=== PATIENT | male | born 1960 | race African-American/Black ===

== ENCOUNTER 2017-07-20 20:38 | Observation (INO) | payer BC ==
[2017-07-20] MEDS ORDERED: NS 0.9% 1000 ML* 1,000 ML IV ONE (20:46)
[2017-07-20 21:08] LABS: ABS Basophils 0 10^3/ul (0-0.2); ABS Eosinophils 0.1 10^3/ul (0-0.6); ABS Lymphocytes 2.5 10^3/ul (1.0-4.8); ABS Monocytes 0.4 10^3/ul (0-0.8); ABS Neutrophils 2.1 10^3/ul (1.5-7.7); ABS Nucleated RBC 0 10^3/ul; Hematocrit 41 % (42-52); Hemoglobin 13.9 g/dl (14.0-18.0); Lymphocyte % 47.9 % (25-47); Mean Corpuscular HGB Conc 34 g/dl (31-36); Mean Corpuscular Hemoglobin 31 pg (27-31); Mean Corpuscular Volume 91 fL (80-94); Mean Platelet Volume 10.3 um3 (7.4-10.4); Nucleated Red Blood Cells % 0.1; Platelet Count 133 10^3/ul (150-450); Red Blood Count 4.46 10^6/ul (4.0-5.4); Red Cell Distribution Width 14 % (10.5-15); White Blood Count 5.2 10^3/ul (3.5-10.8)
[2017-07-20 21:25] LABS: EGFR Non-African American 61.7 (>60)
--- NOTE | 2017-07-20 21:32 | RAD ---
Indication: Chest pain. Single frontal view of the chest performed at 2044 hours was reviewed. No prior study is available for comparison. No mediastinal shift is noted. Heart is of normal size and configuration. Lung farnsworth appear clear. IMPRESSION: NO ACTIVE CARDIOPULMONARY DISEASE IS NOTED.
--- NOTE | 2017-07-20 22:28 | CONS ---
INTERVENTIONAL CARDIOLOGY CONSULT NOTE: DATE OF CONSULT: 07/20/17 REASON FOR CONSULT: Called on a STEMI alert by [facility] Emergency Room, Dr. Keita , to assess the patient with abnormal EKG and chest discomfort. HISTORY OF PRESENT ILLNESS: The patient is a pleasant 56-year-old gentleman with no prior known cardiac history. Specifically, he denies any history of myocardial infarction, congestive heart failure, or significant heart rhythm disturbance. He states he was in his usual state of health sitting at his computer this morning and had the onset of a mild discomfort in his chest that he had a difficult time qualifying. Ultimately, he said it felt like perhaps almost like a gas sensation. There was no radiation to the throat, jaw or the arms. He had no diaphoresis, nausea, vomiting, or profound shortness of breath. It initially lasted 5 minutes, but throughout the day it would come on and off. 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 He eventually continued to have symptoms and as such, called the emergency services and on arrival they performed an EKG and were concerned of ST segment elevation in the early precordial leads and they radio'ed and then called a STEMI alert. When I see the patient now, he is currently without any chest discomfort at all, in no acute distress. The patient is a very active gentleman and does a significant amount of aerobic activity. Just yesterday, he was on an elliptical for an hour without provoking any symptom. The patient denies any history of hypertension or hyperlipidemia. He has no family history of early heart disease. He has no known history of increased cholesterol, and he denies smoking. PAST MEDICAL HISTORY: No significant past medical problems that he readily admits to. In reviewing an old emergency room visit he had for left foot discomfort, knee and thigh discomfort, in the past medical history there was no mention of any other significant illnesses. PAST SURGICAL HISTORY: None. REVIEW OF SYSTEMS: Currently, he denies any light photophobia or blurred vision. He denies any sore throat or earaches. He denies any current chest pain or palpitations. He denies any shortness of breath, cough, or history of asthma. He denies any vomiting, diarrhea, or gastroesophageal reflux symptoms. He denies any dysuria or hematuria. He denies any significant arthralgia or muscle aches currently. He denies having any rashes or easy bruisability, any headache or weakness of one side of the body, any history of depression. He does admit to being anxious this morning and he believes that it started with him sitting in front of the computer, anxious about having to go to work to a meeting. He subsequently canceled the meeting. PHYSICAL EXAM: When I see him in the emergency room reveals a pleasant gentleman resting in no distress. Blood pressure 121/75, pulse of 56, respirations 17, O2 saturation 96% on room air. Neck is supple. No increased JVP. Carotid with good upstroke and volume without bruits. Conjunctivae are pink. Sclerae are clear. Lungs reveal no accessory muscle usage. There is good excursion. There is no active rales, rhonchi, or wheezes. Heart reveals no visible heaves. No palpable heaves or thrills. Normal S1, S2. No S3, S4, or gallop. No significant systolic or diastolic murmur. Abdomen is soft and nontender without organomegaly. Extremities are without clubbing or cyanosis. There is no pitting edema. Peripheral pulses are intact. Neuro: The patient is alert and oriented with normal mentation. Musculoskeletal: The patient moves all extremities appropriate. Psychological: The patient appears quite calm in nature. DIAGNOSTIC STUDIES/LAB DATA: Electrocardiogram done in the emergency room and similar to the ones of the emergency medical service revealed sinus bradycardia ; heart rate of 51; normal CA, QRS, and QT interval. There is a poor R wave in V1 and V2 with J-point elevation noted minimally in V1, more prominent in V2 of approximately 2 mm and 2 to 2.5 mm in V3, subtly in V4 and V5. No definitive reciprocal changes are noted, although biphasic T wave in lead 3 is seen. Bedside echocardiography performed with limited imaging reveals good wall motion to all regions of the left ventricle including the anterior wall. OVERALL ASSESSMENT: Currently, Mr. Wilson appears to be quite stable in nature. At this point in time, he has normal left ventricular systolic function and normal septal wall motion despite poor R waves in V1 and V2, and the ST segment elevations that appear to be mildly concave upward in V2 and V3 and V4 and V5. Without the reciprocal changes and with him totally stable, we will await the cardiac enzymes and if the first troponin is negative, I would clearly not pursue any emergent cardiac catheterization. I will leave it to the emergency room physician and the hospitalist to consider cycling enzymes on him if they believe appropriate, although given his current state and the way he describes his symptoms and what does not and does precipitate it, I am not convinced that this is an acute coronary syndrome. We will await the first set of cardiac enzymes as discussed above. [id number]/[facility] #: [id number] JUANITA
[2017-07-20 22:42] LABS: INR 0.96 (0.77-1.02)
--- NOTE | 2017-07-21 01:11 | ED ---
Elijah Almaraz Rebecca, scribed for Tayo Keita MD on 07/20/17 at 2054 . HPI Chest Pain - HPI Summary HPI Summary: Pt is a 56 y/o M BIBA from [facility] who presents to ED c/o CP. Pain began gradually this morning at 0800 while the pt was awake and has been waxing and waning throughout the day. Pain was in the left side with radiation to the back, described as tearing that has not been severe. He was given 324 mg ASA by [facility] and 1 SL NTG by EMS en route which alleviated his pain completely. Currently, pain is not present, ranked 0/10. Denies SOB. No PMHX or FHx CAD. Recently flew back from [facility]. - History of Current Complaint Chief Complaint: EDChestPainROMI Hx Obtained From: Patient Onset/Duration: Resolved Time of Onset: 08:00 Current Severity: None Pain Intensity: 0 Pain Scale Used: 0-10 Numeric Chest Pain Location: Left Anterior Chest Pain Radiates: Yes Chest Pain Radiates To:: Back Character: Other: - Tearing Alleviating Factor(s): NTG 123 - 1 Associated Signs and Symptoms: Positive: Negative. Negative: Shortness of Breath - Allergy/Home Medications Allergies/Adverse Reactions: Allergies Allergy/AdvReac Type Severity Reaction Status Date / Time No Known Allergies Allergy Verified 07/20/17 21:21 Home Medications: Home Medications NK [No Home Medications Reported] 07/20/17 [History Confirmed 07/20/17] PMH/Surg Hx/FS Hx/Imm Hx Endocrine/Hematology History: Denies: Hx Diabetes Cardiovascular History: Denies: Hx Coronary Artery Disease, Hx Hypercholesterolemia, Hx Hypertension Infectious Disease History: Unable to Obtain/Confirm Infectious Disease History: Reports: Traveled Outside the [place] in Last 30 Days - [place] - Family History Known Family History: Negative: Cardiac Disease - Social History Occupation: Employed Full-time Alcohol Use: None Substance Use Type: Reports: None Smoking Status (MU): Never Smoked Tobacco Review of Systems Positive: Chest Pain - resolved Negative: Shortness Of Breath All Other Systems Reviewed And Are Negative: Yes Physical Exam - Summary Physical Exam Summary: Appearance: Well appearing, no pain distress Skin: warm, dry, reflects adequate perfusion Head/face: normal Eyes: EOMI, CK ENT: normal Neck: supple, non-tender Respiratory: CTA, breath sounds present Cardiovascular: RRR, pulses symmetrical Abdomen: non-tender, soft Bowel Sounds: present Musculoskeletal: normal, strength/ROM intact, no LE edema Neuro: normal, sensory motor intact, A&Ox3 Triage Information Reviewed: Yes Vital Signs On Initial Exam: Initial Vitals Temp Pulse Resp BP Pulse Ox 97.9 F 78 22 114/74 96 07/20/17 20:38 07/20/17 20:38 07/20/17 20:38 07/20/17 20:38 07/20/17 20:38 Vital Signs Reviewed: Yes Diagnostics - Vital Signs Vital Signs Temp Pulse Resp BP Pulse Ox 07/20/17 20:38 97.9 F 78 22 114/74 96 - Laboratory Lab Results: Lab Results 07/20/17 07/20/17 07/20/17 Range/Units 20:58 20:58 20:58 WBC 5.2 (3.5-10.8) 10^3/ul RBC 4.46 (4.0-5.4) 10^6/ul Hgb 13.9 L (14.0-18.0) g/dl Hct 41 L (42-52) % MCV 91 (80-94) fL MCH 31 (27-31) pg MCHC 34 (31-36) g/dl RDW 14 (10.5-15) % Plt Count 133 L (150-450) 10^3/ul MPV 10.3 (7.4-10.4) um3 Neut % (Auto) 40.9 (38-83) % Lymph % (Auto) 47.9 H (25-47) % [place] % (Auto) 8.4 H (0-7) % Eos % (Auto) 2.0 (0-6) % Baso % (Auto) 0.8 (0-2) % Absolute Neuts (auto) 2.1 (1.5-7.7) 10^3/ul Absolute Lymphs (auto) 2.5 (1.0-4.8) 10^3/ul Absolute Monos (auto) 0.4 (0-0.8) 10^3/ul Absolute Eos (auto) 0.1 (0-0.6) 10^3/ul Absolute Basos (auto) 0 (0-0.2) 10^3/ul Absolute Nucleated RBC 0 10^3/ul Nucleated RBC % 0.1 INR (Anticoag Therapy) (0.77-1.02) APTT (26.0-36.3) seconds D-Dimer, Quantitative (Less Than 230) ng/mL Sodium 137 L (139-145) mmol/L Potassium TNP Chloride 105 (101-111) mmol/L Carbon Dioxide 26 (22-32) mmol/L Anion Gap 6 (2-11) mmol/L BUN 15 (6-24) mg/dL Creatinine 1.22 H (0.67-1.17) mg/dL Est GFR ( Amer) 79.3 (>60) Est GFR (Non-Af Amer) 61.7 (>60) BUN/Creatinine Ratio 12.3 (8-20) Glucose 86 (70-100) mg/dL Lactic Acid (0.5-2.0) mmol/L Calcium 9.3 (8.6-10.3) mg/dL Total Bilirubin 0.50 (0.2-1.0) mg/dL AST TNP ALT 14 (7-52) U/L Alkaline Phosphatase 77 (34-104) U/L Total Creatine Kinase 182 (10-223) U/L CK-MB (CK-2) 2.1 (0.6-6.3) ng/mL Troponin I 0.01 (<0.04) ng/mL B-Natriuretic Peptide 12 ( - 100) pg/mL Total Protein 7.8 (6.4-8.9) g/dL Albumin 4.5 (3.2-5.2) g/dL Globulin 3.3 (2-4) g/dL Albumin/Globulin Ratio 1.4 (1-3) LDL Cholesterol Direct 89 mg/dL 07/20/17 07/20/17 07/20/17 Range/Units 20:58 22:20 22:20 WBC (3.5-10.8) 10^3/ul RBC (4.0-5.4) 10^6/ul Hgb (14.0-18.0) g/dl Hct (42-52) % MCV (80-94) fL MCH (27-31) pg MCHC (31-36) g/dl RDW (10.5-15) % Plt Count (150-450) 10^3/ul MPV (7.4-10.4) um3 Neut % (Auto) (38-83) % Lymph % (Auto) (25-47) % [place] % (Auto) (0-7) % Eos % (Auto) (0-6) % Baso % (Auto) (0-2) % Absolute Neuts (auto) (1.5-7.7) 10^3/ul Absolute Lymphs (auto) (1.0-4.8) 10^3/ul Absolute Monos (auto) (0-0.8) 10^3/ul Absolute Eos (auto) (0-0.6) 10^3/ul Absolute Basos (auto) (0-0.2) 10^3/ul Absolute Nucleated RBC 10^3/ul Nucleated RBC % INR (Anticoag Therapy) 0.96 (0.77-1.02) APTT 27.2 (26.0-36.3) seconds D-Dimer, Quantitative < 200 (Less Than 230) ng/mL Sodium (139-145) mmol/L Potassium 3.8 Chloride (101-111) mmol/L Carbon Dioxide (22-32) mmol/L Anion Gap (2-11) mmol/L BUN (6-24) mg/dL Creatinine (0.67-1.17) mg/dL Est GFR ( Amer) (>60) Est GFR (Non-Af Amer) (>60) BUN/Creatinine Ratio (8-20) Glucose (70-100) mg/dL Lactic Acid 0.9 (0.5-2.0) mmol/L Calcium (8.6-10.3) mg/dL Total Bilirubin (0.2-1.0) mg/dL AST 20 ALT (7-52) U/L Alkaline Phosphatase (34-104) U/L Total Creatine Kinase (10-223) U/L CK-MB (CK-2) (0.6-6.3) ng/mL Troponin I (<0.04) ng/mL B-Natriuretic Peptide ( - 100) pg/mL Total Protein (6.4-8.9) g/dL Albumin (3.2-5.2) g/dL Globulin (2-4) g/dL Albumin/Globulin Ratio (1-3) LDL Cholesterol Direct mg/dL Result Diagrams: 07/20/17 20:58 04/23/18 22:20 Lab Statement: Any lab studies that have been ordered have been reviewed, and results considered in the medical decision making process. - Radiology CXR Xray Interpretation: No Acute Changes - NO ACTIVE CARDIOPULMONARY DISEASE IS NOTED. ED physician reviewed this radiology report. Radiology Interpretation Completed By: Radiologist - EKG 2040 Cardiac Rate: Bradycardia - 51 bpm EKG Rhythm: Sinus Bradycardia EKG Interpretation: Nl axis, poor R wave progression, J point elev. V2-V4 w/ ST elev. V2, V3 Re-Evaluation - Re-Evaluation First Eval Re-Evaluation Time: 23:26 Comment: Discussed admission plan. Chest Pain Course/Dx - Course Assessment/Plan: Pt is a 56 y/o M BIBA from [facility] who presents as STEMI activation to ED c/o left-sided CP with radiation to the back that began gradually this morning at 0800 while the pt was awake which has been waxing and waning throughout the day. Pain described as tearing that has not been severe. He was given 324 mg ASA by [facility] and 1 SL NTG by EMS en route which alleviated his pain completely. Currently, pain is not present, ranked 0/10. Denies SOB. No PMHX or FHx CAD. Recently flew back from [facility]. STEMI called 5 minutes [employer] [facility] ATTEND[facility]. CXR reveals no acute findings. EKG is sinus ehsan with all findings above. Blood work was done. Troponin of 0.01, d-dimer <200. Discussed care of pt with Dr. Talbot who will see the pt in the ED. Discussed care of pt with Dr. Rodriguez who accepts pt for admission. Pt will be admitted with Dx of chest pain and ACS. He understands and agrees. He remains pain free. - Chest Pain Differential Diagnosis/HQI/PQRI: Acute IA, ACS, Chest Wall, GI Disease, Lower Respiratory Infection, Pulmonary Edema, Pulmonary Embolism - Diagnoses Provider Diagnoses: Chest pain, ACS (acute coronary syndrome) During the Visit The Following Alert/Code Occurred: STEMI - 2028 - 5 minutes [employer] [facility] ATTENDANT - Provider Notifications Discussed Care Of Patient With: Shane Talbot - also seen by Dr Katz who admits. Time Discussed With Above Provider: 20:46 Instructed by Provider To: Other - Will see the pt in the ED. Discussed care of pt with Dr. Rodriguez at 2300 who accepts pt for admission. Discharge - Sign-Out/Discharge Documenting (check all that apply): Discharge/Admit/Transfer - Admit - Discharge Plan Condition: Improved Disposition: ADMITTED TO [facility] Referrals: No Primary Care Phys,NOPCP [Primary Care Provider] - - Billing Disposition and Condition Condition: IMPROVED Disposition: HOSP-[facility] The documentation as recorded by the Elijah mijares Rebecca accurately reflects the service I personally performed and the decisions made by , Tayo Keita MD.
[2017-07-21] MEDS ORDERED: Ondansetron INJ* 2 MG/ML VIAL IV PRN (06:46)
[2017-07-21] MEDS ORDERED: Acetaminophen TAB* 325 MG PO PRN (06:46)
--- NOTE | 2017-07-21 06:56 | HP ---
H&P (Free Text) History and Physical: PCP: Nikky Rey MD Date/Time: 07/21/2017 9173 CC: chest pain HPI: Mr Wilson is a 56YO male without significant history who experienced the onset yesterday shortly after awakening at 0800 of 1-2/10 non- radiating non-exertional chest pressure without SOB, N/V, sweats, palpitations, or light-headedness. The pain lasted ~10 minutes prior to spontaneous resolution. 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 However, he decided to present for evaluation this evening at the encouragement of several friends. He has no history of similar. PMedHx denies Ambulatory Orders NK [No Home Medications Reported] 07/20/17 Allergies No Known Allergies Allergy (Verified 07/20/17 21:21) PSurgHx denies SocHx: no tobacco, alcohol, or recreational drugs; single; [employer] professor of [employer]; full code status FamHx: denies early onset CAD/CVA/PVD ROS: as above, otherwise reviewed and all were negative vitals: Vital Signs Temp 36.4 C 07/21/17 05:05 Pulse 50 07/21/17 05:05 Resp 20 07/21/17 05:05 BP 115/70 07/21/17 05:05 Pulse Ox 100 07/21/17 05:05 Intake & Output 07/20/17 07/20/17 07/21/17 11:59 23:59 11:59 Intake Total 1000 Balance 1000 Weight 100.698 kg 99.246 kg Intake: IV Fluids 1000 Constitutional: NAD, normally developed, overweight black male HEENM: atraumatic; sclera/conjunctiva: anicteric; hearing: clinically intact; oropharynx: clear, moist Neck: soft tissue: normal; thyroid: non-tender Pulmonary: clear to auscultation bilaterally, good aeration, no accessory muscle use CV: RR/RR, normal S1S2, no carotid bruit, no jugular venous distention, 2+ B DP/ PT, no edema Abdominal: soft, non-distended, non-tender, no rebound/guarding/rigidity, normoactive bowel sounds, no hepatosplenomegaly or masses, no costovertebral angle tenderness Musculoskeletal: general: grossly intact; gait: stable Integumental: normal appearance and texture of exposed skin Psychiatric orientation: AA&O to PPS affect: calm mood: cooperative, pleasant eye contact: good content: reliable responses: timely insight: fair Testing: Lab Results 07/20/17 07/20/17 07/20/17 Range/Units 20:58 20:58 20:58 WBC 5.2 (3.5-10.8) 10^3/ul RBC 4.46 (4.0-5.4) 10^6/ul Hgb 13.9 L (14.0-18.0) g/dl Hct 41 L (42-52) % MCV 91 (80-94) fL MCH 31 (27-31) pg MCHC 34 (31-36) g/dl RDW 14 (10.5-15) % Plt Count 133 L (150-450) 10^3/ul MPV 10.3 (7.4-10.4) um3 Neut % (Auto) 40.9 (38-83) % Lymph % (Auto) 47.9 H (25-47) % [place] % (Auto) 8.4 H (0-7) % Eos % (Auto) 2.0 (0-6) % Baso % (Auto) 0.8 (0-2) % Absolute Neuts (auto) 2.1 (1.5-7.7) 10^3/ul Absolute Lymphs (auto) 2.5 (1.0-4.8) 10^3/ul Absolute Monos (auto) 0.4 (0-0.8) 10^3/ul Absolute Eos (auto) 0.1 (0-0.6) 10^3/ul Absolute Basos (auto) 0 (0-0.2) 10^3/ul Absolute Nucleated RBC 0 10^3/ul Nucleated RBC % 0.1 INR (Anticoag Therapy) (0.77-1.02) APTT (26.0-36.3) seconds D-Dimer, Quantitative (Less Than 230) ng/mL Sodium 137 L (139-145) mmol/L Potassium TNP Chloride 105 (101-111) mmol/L Carbon Dioxide 26 (22-32) mmol/L Anion Gap 6 (2-11) mmol/L BUN 15 (6-24) mg/dL Creatinine 1.22 H (0.67-1.17) mg/dL Est GFR ( Amer) 79.3 (>60) Est GFR (Non-Af Amer) 61.7 (>60) BUN/Creatinine Ratio 12.3 (8-20) Glucose 86 (70-100) mg/dL Lactic Acid (0.5-2.0) mmol/L Calcium 9.3 (8.6-10.3) mg/dL Total Bilirubin 0.50 (0.2-1.0) mg/dL AST TNP ALT 14 (7-52) U/L Alkaline Phosphatase 77 (34-104) U/L Total Creatine Kinase 182 (10-223) U/L CK-MB (CK-2) 2.1 (0.6-6.3) ng/mL Troponin I 0.01 (<0.04) ng/mL B-Natriuretic Peptide 12 ( - 100) pg/mL Total Protein 7.8 (6.4-8.9) g/dL Albumin 4.5 (3.2-5.2) g/dL Globulin 3.3 (2-4) g/dL Albumin/Globulin Ratio 1.4 (1-3) LDL Cholesterol Direct 89 mg/dL 07/20/17 07/20/17 07/20/17 Range/Units 20:58 22:20 22:20 WBC (3.5-10.8) 10^3/ul RBC (4.0-5.4) 10^6/ul Hgb (14.0-18.0) g/dl Hct (42-52) % MCV (80-94) fL MCH (27-31) pg MCHC (31-36) g/dl RDW (10.5-15) % Plt Count (150-450) 10^3/ul MPV (7.4-10.4) um3 Neut % (Auto) (38-83) % Lymph % (Auto) (25-47) % [place] % (Auto) (0-7) % Eos % (Auto) (0-6) % Baso % (Auto) (0-2) % Absolute Neuts (auto) (1.5-7.7) 10^3/ul Absolute Lymphs (auto) (1.0-4.8) 10^3/ul Absolute Monos (auto) (0-0.8) 10^3/ul Absolute Eos (auto) (0-0.6) 10^3/ul Absolute Basos (auto) (0-0.2) 10^3/ul Absolute Nucleated RBC 10^3/ul Nucleated RBC % INR (Anticoag Therapy) 0.96 (0.77-1.02) APTT 27.2 (26.0-36.3) seconds D-Dimer, Quantitative < 200 (Less Than 230) ng/mL Sodium (139-145) mmol/L Potassium 3.8 Chloride (101-111) mmol/L Carbon Dioxide (22-32) mmol/L Anion Gap (2-11) mmol/L BUN (6-24) mg/dL Creatinine (0.67-1.17) mg/dL Est GFR ( Amer) (>60) Est GFR (Non-Af Amer) (>60) BUN/Creatinine Ratio (8-20) Glucose (70-100) mg/dL Lactic Acid 0.9 (0.5-2.0) mmol/L Calcium (8.6-10.3) mg/dL Total Bilirubin (0.2-1.0) mg/dL AST 20 ALT (7-52) U/L Alkaline Phosphatase (34-104) U/L Total Creatine Kinase (10-223) U/L CK-MB (CK-2) (0.6-6.3) ng/mL Troponin I (<0.04) ng/mL B-Natriuretic Peptide ( - 100) pg/mL Total Protein (6.4-8.9) g/dL Albumin (3.2-5.2) g/dL Globulin (2-4) g/dL Albumin/Globulin Ratio (1-3) LDL Cholesterol Direct mg/dL 07/21/17 Range/Units 05:33 WBC (3.5-10.8) 10^3/ul RBC (4.0-5.4) 10^6/ul Hgb (14.0-18.0) g/dl Hct (42-52) % MCV (80-94) fL MCH (27-31) pg MCHC (31-36) g/dl RDW (10.5-15) % Plt Count (150-450) 10^3/ul MPV (7.4-10.4) um3 Neut % (Auto) (38-83) % Lymph % (Auto) (25-47) % [place] % (Auto) (0-7) % Eos % (Auto) (0-6) % Baso % (Auto) (0-2) % Absolute Neuts (auto) (1.5-7.7) 10^3/ul Absolute Lymphs (auto) (1.0-4.8) 10^3/ul Absolute Monos (auto) (0-0.8) 10^3/ul Absolute Eos (auto) (0-0.6) 10^3/ul Absolute Basos (auto) (0-0.2) 10^3/ul Absolute Nucleated RBC 10^3/ul Nucleated RBC % INR (Anticoag Therapy) (0.77-1.02) APTT (26.0-36.3) seconds D-Dimer, Quantitative (Less Than 230) ng/mL Sodium (139-145) mmol/L Potassium Chloride (101-111) mmol/L Carbon Dioxide (22-32) mmol/L Anion Gap (2-11) mmol/L BUN (6-24) mg/dL Creatinine (0.67-1.17) mg/dL Est GFR ( Amer) (>60) Est GFR (Non-Af Amer) (>60) BUN/Creatinine Ratio (8-20) Glucose (70-100) mg/dL Lactic Acid (0.5-2.0) mmol/L Calcium (8.6-10.3) mg/dL Total Bilirubin (0.2-1.0) mg/dL AST ALT (7-52) U/L Alkaline Phosphatase (34-104) U/L Total Creatine Kinase (10-223) U/L CK-MB (CK-2) (0.6-6.3) ng/mL Troponin I 0.01 (<0.04) ng/mL B-Natriuretic Peptide ( - 100) pg/mL Total Protein (6.4-8.9) g/dL Albumin (3.2-5.2) g/dL Globulin (2-4) g/dL Albumin/Globulin Ratio (1-3) LDL Cholesterol Direct mg/dL ECG, personally reviewed: sinus bradycardia rate 51, J-point elevation V2-5, inverted T in III; no comparison CXR, personally reviewed: IMPRESSION: NO ACTIVE CARDIOPULMONARY DISEASE IS NOTED. Impression: 56M presenting with chest pain for r/o ACS DIAGNOSIS & PLAN Primary chest pain r/o ACS : telemetry : trend troponin : supplemental oxygen : aspirin : no beta skyla 2nd bradycardia : exercise stress test in AM : supportive care Admission Rational: observation for r/o ACS DVTp: SCDs Code Status: full
[2017-07-21 08:04] VITALS: BP 107/64
--- NOTE | 2017-07-21 22:25 | DS ---
CC: Dr. Tena; Mackenzie Fam DO* DISCHARGE SUMMARY: DATE OF ADMISSION: 07/21/17 DATE OF DISCHARGE: 07/21/17 PRIMARY CARE PROVIDER: Dr. Tena. MY ATTENDING WHILE IN THE HOSPITAL: ALICE James (dictated by BOOKER Finch). PRIMARY DISCHARGE DIAGNOSIS: Chest pain, early repolarization abnormality on EKG. SECONDARY DISCHARGE DIAGNOSIS: None. STUDIES DONE WHILE IN THE HOSPITAL: EKG from 07/20/[address] segment elevation, concave in V2, V3 and V4 with J-point elevation. No reciprocal changes. Bradycardia, rate of 51, QTc of 401. Normal axis. No blocks or hypertrophy. No other abnormalities. Repeat EKG shows no significant changes. Stress echocardiogram showed no significant wall motion abnormalities with exercise. Reports are not currently available in the computer. MEDICATIONS AT DISCHARGE: None. HOSPITAL COURSE: This is a brief summary of the patient's presentation. For more details, please see history and physical from Dr. Jean-Paul Rodriguez on 07/21 as well as the consultation from Dr. Shane Talbot on 07/20/17. In brief, the patient is a 56-year-old male with no known past medical history who presented with chest pain, mild that he felt like it was a gas sensation or more like a muscle spasm. He had no associated symptoms. It went on and off for throughout the day. It was not provoked by exercise. He was told by his coworker to seek medical attention and he was seen to have ST segment elevations on EKG and was called into the emergency department as a STEMI alert. The patient is in very good health. No history of hypertension, hyperlipidemia, early heart disease, increased cholesterol. The patient has never smoked. The patient's review of systems is otherwise negative. This was deemed not to be a STEMI alert. The patient was admitted to the hospital for stress test. The patient had a stress echocardiogram performed in the morning on 07/21/17, which was negative for wall motion abnormalities. Repeat EKG showed similar ST segment elevations. The patient had a creatinine of 1.22, which was his only significant laboratory abnormality. The patient was chest pain free for the entirety of the hospitalization. The patient stated that he believe this pain was due to stress or abnormal stretching associated with traveling in close quarters. The patient's LDL cholesterol 89. The patient was amenable to discharge home to follow with his primary care provider. PHYSICAL EXAMINATION ON THE DATE OF DISCHARGE: General: The patient is a 56- year- old -[place] male who appears stated age, sitting comfortably in the bed, in no acute distress. Vital Signs: Temperature 98.4, pulse rate 50, respiratory rate 16, oxygen saturation 99% room air, blood pressure 107/64. HEENT: Head: Normocephalic, atraumatic. Sclerae anicteric. No conjunctival injection. Nasal mucosa moist. Oral mucosa moist. No pharyngeal erythema, discharge, or exudate. Neck: Supple, nontender. No lymphadenopathy. No carotid bruit auscultated. No JVD. Cardiac: Regular rate and rhythm. No clicks, murmurs, gallops, or rubs. Pulses 2+ in bilateral dorsalis pedis, posterior tibialis, and radial areas. No bilateral lower extremity edema or calf tenderness noted. Respiratory: Clear to auscultation bilaterally. No wheezes, rales, or rhonchi. Good air exchange bilaterally. Abdomen: Soft, nontender, nondistended. Bowel sounds present. Normoactive in all 4 quadrants. No hepatosplenomegaly. No abdominal bruits auscultated. Skin: Clean, dry, and intact. No rashes. Neuro: Cranial nerves II through XII intact. No focal deficits. Psychiatric: Very pleasant and cooperative. LABORATORY DATA: From the HPI, in addition troponin 0.01 x2, BNP 12, elevated cholesterol 89. D-dimer less than 200. DISCHARGE PLAN: The patient will be discharged to home. The patient has been informed that he has likely early repolarization abnormality on his EKG, which is of controversial significance, but is probably related to his good physical fitness and that he has no current health problems. He was instructed to not ignore chest pain due to the nature of this hospitalization that he should return to the emergency department if he has chest pain in the future. He was recommended that if he was still inclined, he could request a copy of his EKG and have a copy available to compare ST segment in the event of emergency. The patient has no activity restrictions or dietary restrictions. The patient should follow up with his primary care provider within 1 week. TIME SPENT: Approximately 60 minutes were spent on this discharge, 30 of which was spent in [id number] with the patient, obtaining history and physical, discussing treatment plan. BOOKER FINCH [id number]/[facility] #: [id number] [facility]ITALTimothy
== END 2017-07-21 13:00 | disposition home or self-care (01) ==
LOC: ED 20:38 → MEDTELE 07-21 03:46
PROVIDERS: ADMIT Hospitalist; ATTEND Hospitalist
DX: R07.9 Chest pain, unspecified (principal); R00.1 Bradycardia, unspecified
CPT/HCPCS: 36415; 71045; 80053; 82550; 82553; 83605; 83721; 83880; 84484; 85025; 85379; 85610; 85730; 93005; 93308; 96360; 99285; G0378